=== PATIENT | female | born 1950 | race Caucasian/White ===

== ENCOUNTER 2017-10-25 06:55 | Day surgery (SDC) ==
[2013-12-17 22:25] VITALS: BMI 33.2
[2017-10-25] MEDS ORDERED: LIDOCAINE 1% 20 ML MDV ID STA (07:21)
[2017-10-25 07:26] VITALS: TEMP 97.4
[2017-10-25] MEDS ORDERED: DIPRIVAN 20 ML VIAL IVP ONE (08:04)
[2017-10-25 14:45] VITALS: BP 122/56
--- NOTE | 2017-10-26 08:32 | OP ---
INDICATIONS FOR PROCEDURE: 67-year-old female presents for screening colonoscopy exam. She has a younger sister who developed colon cancer at age 62. MEDICATIONS: SEE ANESTHESIA NOTES. PROCEDURE: COLONOSCOPY. REPORT: The risks, benefits, alternatives and limitations were discussed in detail with the patient. Informed consent was obtained. After adequate sedation was achieved, a digital rectal exam revealed good tone, no masses. The colonoscope was introduced into the rectum and advanced under direct visual guidance to the cecum. The cecum was identified by the appendiceal orifice and IC valve. I then slowly withdrew the scope in a circumferential manner examining the mucosa quite carefully. I looked on the proximal and distal side of folds and flexures as best as possible. I was able to retroflex the scope in the right colon and left colon to increase visualization. In the ascending colon there was a small lipoma less than 1 cm in size. The remaining colon was unremarkable including on retroflex view of the anal canal. The prep was good. The withdrawal time was 8 minutes and 10 seconds. The patient tolerated the procedure well with stable vital signs and pulse oximetry throughout. IMPRESSION: 1. SMALL LIPOMA IN THE ASCENDING COLON 2. OTHERWISE NORMAL EXAM. RECOMMENDATIONS: 1. Office visit as needed. 2. Screening colonoscopy exam again in five years based on her family history , sooner if there are any signs or symptoms to indicate otherwise. CC: DR. ANSON GRIGSBY
== END 2017-10-25 09:15 | disposition home or self-care (01) ==
LOC: SURG 06:55
PROVIDERS: ATTEND Internal Medicine Gastroenterology
DX: K62.5 Hemorrhage of anus and rectum (principal); R19.5 Other fecal abnormalities; D17.79 Benign lipomatous neoplasm of other sites

== ENCOUNTER 2018-08-24 10:16 | Emergency (ER) ==
[2018-08-24 10:23] VITALS: BP 154/84; TEMP 98.6; BMI 32.8
--- NOTE | 2018-08-24 10:25 | ED.PDOC ---
General ED Provider: Dr. GARY CASILLAS Chief Complaint: Shoulder Pain/Injury Stated Complaint: 67 y old female PT knocked-pushed by a cow suffered contusion of left shoulder,It does not appear to be dislocatewd.Pain in deltoid distribution limits active abduction to bare minimum, Time Seen by Physician: 10:25 Mode of Arrival: Walk-In Information Source: Patient Exam Limitations: No limitations Primary Care Provider: KARLA GRIGGS Nursing and Triage Documentation Reviewed and Agree: Yes Does patient meet sepsis criteria?: No System Inflammatory Response Syndrome: Not Applicable Sepsis Protocol: For patient's 13 years and over: Temp is 96.8 and below OR 101 and greater Pulse >90 BPM Resp >20/minute Acutely Altered Mental Status Are patient's symptoms suggestive of a new infection, such as: -Pneumonia -Skin, Soft Tissue -Endocarditis -UTI -Bone, Joint Infection -Implantable Device -Acute Abdominal Infection -Wound Infection -Meningitis -Blood Stream Catheter Infection -Unknown Musculoskeletal Complaint Exam - Shoulder Pain Complaint/Exam Onset/Duration: today Symptoms Are: Still present Timing: Constant Episodes Lasting: hours Initial Severity: Moderate Current Severity: Moderate Location: Reports: Discrete Character: Reports: Dull, Aching Alleviating: Reports: Rest, Ice Aggravating: Reports: Movement Associated Signs and Symptoms: Reports: Weakness Non-Orthopedic Risk Factors: Reports: None DVT Risk Factors: Reports: Prior DVT Septic Arthritis Risk Factors: Reports: Imunosuppressed Related Surgical History: Reports: None Shoulder Findings: Present: Swelling Tenderness: Present: Rotator cuff muscles Limited Range of Motion: Present: Abduction, Extension, External rotation Differential Diagnoses: Contusion, Rotator Cuff Injury, Sprain, Strain Review of Systems - Review Of Systems Constitutional: Reports: No symptoms Eyes: Reports: No symptoms Ears, Nose, Mouth, Throat: Reports: No symptoms Respiratory: Reports: No symptoms Cardiac: Reports: No symptoms GI: Reports: No symptoms : Reports: No symptoms Musculoskeletal: Reports: Muscle pain Skin: Reports: No symptoms Neurological: Reports: Anxiety, Weakness Endocrine: Reports: No symptoms Hematologic/Lymphatic: Reports: No symptoms All Other Systems: Reviewed and Negative Past Medical History - Past Medical History Previously Healthy: Yes Endocrine: Reports: None, Unknown Cardiovascular: Reports: None Respiratory: Reports: None Hematological: Reports: None Gastrointestinal: Reports: None Genitourinary: Reports: None Neuro/Psych: Reports: None Musculoskeletal: Reports: None Cancer: Reports: None Last Menstrual Period: N/A - Surgical History General Surgical History: Reports: None - Family History Family History: Reports: None - Social History Smoking Status: Never smoker Hx Substance Use: No Alcohol Screening: None - Immunizations Tetanus Shot up to Date: No (UNKNOWN) Physical Exam - Physical Exam Appearance: Well-appearing, Cachectic Ill-appearing: None Pain Distress: Mild Eyes: SANDRA, EOMI, Conjunctiva clear ENT: Ears normal, Nose normal, Oropharynx normal Neck: Supple Respiratory: Airway patent, Breath sounds clear, Breath sounds equal Cardiovascular: RRR, Pulses normal, No rub, No murmur GI/: Soft, Nontender, No masses, Bowel sounds normal, No Organomegaly Musculoskeletal: Limited ROM, Limited strength, Edema Skin: Warm, Dry Neurological: Sensation intact, Motor intact, Reflexes intact, Cranial nerves intact, Alert, Oriented Psychiatric: Affect appropriate Critical Care Note - Critical Care Note Total Time (mins): 0 Course - Course Orders, Labs, Meds: Orders Category Date Time Status SHOULDER, LEFT MIN 2V Stat RADS 08/24/18 10:32 Completed Vital Signs: Temp Pulse Resp BP Pulse Ox 08/24/18 10:16 98.6 F 62 20 154/84 H 94 L Departure - Departure Time of Disposition: 11:59 Disposition: HOME SELF-CARE Discharge Problem: Contusion, shoulder /upper arm Instructions: Musculoskeletal Pain (ED) Condition: Good Pt referred to PMD for follow-up: Yes IPMP verified?: No Additional Instructions: use splint-support as instructedc.Ibuprofen OTC p[rn 200 mg qid x 5 days. Allergies/Adverse Reactions: Allergies No Known Allergies Allergy (Verified 08/24/18 10:31) Home Medications: Ambulatory Orders Pantoprazole Sodium [Protonix] 40 mg PO DAILY 10/24/17 Aspirin [Aspirin EC] 81 mg PO DAILY 08/24/18 Cholecalciferol (Vitamin D3) [Vitamin D3] 2,000 unit PO DAILY 08/24/18 Lisinopril [Zestril] 5 mg PO DAILY 08/24/18 Disposition Discussed With: Patient
--- NOTE | 2018-08-24 11:36 | DI ---
EXAM: Three views of the left shoulder. History: Left shoulder pain. Findings: No acute fracture or dislocation. No abnormal calcifications or radiopaque foreign bodies . Mild narrowing of the left AC joint. The left glenohumeral joint. Impression: 1. No acute osseous abnormality. 2. Mild arthritis
== END 2018-08-24 12:15 | disposition home or self-care (01) ==
LOC: ED 10:16
DX: S40.012A Contusion of left shoulder, initial encounter (principal); W55.22XA Struck by cow, initial encounter
CPT/HCPCS: 99283